=== PATIENT | female | born 1990 | race African-American/Black ===

== ENCOUNTER 2016-10-07 20:27 | Emergency (ER) | payer OTHER ==
[2016-10-07 20:38] VITALS: BP 139/76; PULSE 71; TEMP 98; BMI 36.3
[2016-10-07] MEDS ORDERED: ALBUTEROL SO4 2.5/IPRATROPIUM 0.5 INH SOL 3 ML VIAL.NEB. NEB ONE ×2 (21:36→21:37)
--- NOTE | 2016-10-07 21:37 | PDOC ---
History of Present Illness - General History Source: Patient Exam Limitations: No Limitations - History of Present Illness Initial Comments: 10/07/16 21:38 The patient is a 26 year old female, with a significant past medical history of asthma (denies any pump/inhalators) who presents to the emergency department with chest tightness and SOB for the past hour. The patient also notes having nasal congestion since this morning for which she plans to see her PCP on Wednesday. She notes having rhinorrhea describing her nasal discharge as clear. She denies any ear pain/congestion. She denies any sore throat. She denies any sick contacts. She denies any flu shot this year. She denies fever, chills, headache and dizziness. She denies nausea, vomit, diarrhea and constipation. She denies dysuria, frequency, urgency and hematuria. Allergies: NKA Past surgical history: denies Social history: Denies EtOH use, denies tobacco use, denies drug use. PCP: Dr. Carolynn Nj <Reagan Shell - Last Filed: 10/07/16 21:40> <Lucia Wu - Last Filed: 10/08/16 05:12> - General Chief Complaint: Asthma Stated Complaint: TIGHTNESS TO CHEST/SOB Time Seen by Provider: 10/07/16 20:31 Past History <Reagan Shell - Last Filed: 10/07/16 21:40> - Past Medical History Anemia: Yes (LOW IRON) Asthma: Yes Suicide Attempt (Hx): No - Surgical History Abdominal Surgery: Yes (hernia) - Immunization History Immunization Up to Date: Yes - Psycho/Social/Smoking Cessation Hx Anxiety: No Suicidal Ideation: No Smoking Status: Yes Smoking History: Never smoked Have you smoked in the past 12 months: No Number of Cigarettes Smoked Daily: 0 If you are a former smoker, when did you quit?: 1month Information on smoking cessation initiated: No 'Breaking Loose' booklet given: 03/11/15 Hx Alcohol Use: No Drug/Substance Use Hx: No Substance Use Type: None <Lucia Wu - Last Filed: 10/08/16 05:12> - Past Medical History Allergies/Adverse Reactions: Allergies Allergy/AdvReac Type Severity Reaction Status Date / Time No Known Allergies Allergy Verified 09/12/16 02:01 Home Medications: Ambulatory Orders Albuterol Sulfate Inhaler - [Ventolin HFA Inhaler -] 1 puff IH Q6H PRN #1 inhaler 10/07/16 Fluticasone Prop 0.05% Nasal [Flonase -] 1 - 2 spray NS BID #1 spray.pump Review of Systems - Review of Systems All Other Systems: Reviewed and Negative <Reagan Shell - Last Filed: 10/07/16 21:40> *Physical Exam - Vital Signs Last Vital Signs Temp Pulse Resp BP Pulse Ox 98 F 71 15 139/76 100 10/07/16 20:30 10/07/16 20:30 10/07/16 20:30 10/07/16 20:30 10/07/16 20:30 - Physical Exam Comments: 10/07/16 21:38 GENERAL: The patient is awake, alert, and fully oriented, in no acute distress. HEAD: Normal with no signs of trauma. EYES: Pupils equal, round and reactive to light, extraocular movements intact, sclera anicteric, conjunctiva clear with no pallor. ENT: Ears normal, Clear secretions bilateral nares., oropharynx clear without exudates. Moist mucous membranes. NECK: Normal range of motion, supple without lymphadenopathy, JVD, or masses. LUNGS: Decreased breath sounds. No wheeze/crackles. HEART: Regular rate and rhythm, normal S1 and S2 without murmur or rub. ABDOMEN: Soft/nontender/nondistended. BS wnl. No guarding or rebound. No palpable masses. No hepatosplenomegaly. EXTREMITIES: Normal range of motion, no edema. No clubbing or cyanosis. No cords , erythema, or tenderness. NEUROLOGICAL: Cranial nerves II through XII grossly intact. Normal speech, normal gait. PSYCH: Normal mood, normal affect. SKIN: Warm, Dry, normal turgor, no rashes or lesions noted. <Reagan Shell - Last Filed: 10/07/16 21:40> - Vital Signs Last Vital Signs Temp Pulse Resp BP Pulse Ox 98 F 71 15 139/76 100 10/07/16 20:30 10/07/16 20:30 10/07/16 20:30 10/07/16 20:30 10/07/16 20:30 <Lucia Wu - Last Filed: 10/08/16 05:12> Progress Note - Progress Note Progress Note: Documentation has been prepared under my direction and personally reviewed by me in its entirety. I attest that this documented accurately reflects all work, treatment, procedures and medical decision making performed by me. <Lucia Wu - Last Filed: 10/08/16 05:12> Medical Decision Making - Medical Decision Making As noted above, this 26-year-old woman with a history of mild asthma presents with upper respiratory symptoms along with sensation of "chest tightness" with breathing. She has not had actual wheezing. Exam shows evidence of rhinorrhea and decreased rest sounds bilaterally but no wheezing. Because patient is probably experiencing mild bronchospasm, DuoNeb treatment given. Patient has significant relief after the nebulizer treatment. Repeat lung exam shows much better air exchange. Patient will be discharged with prescription for albuterol inhaler, 2 puffs every 6 hours as needed for wheezing sent to her pharmacy. Also, prescription for Flonase 1 spray in each nostril twice a day will be sent to pharmacy. The patient has follow-up scheduled with her PMD on October 12. She should return to ER if she has worsening respiratory symptoms or high fever <Lucia Wu - Last Filed: 10/08/16 05:12> *DC/Admit/Observation/Transfer - Attestations Scribe Attestion: 10/07/16 21:38 Documentation prepared by Reagan Shell, acting as bacteriologist medical for Lucia Wu MD. <Regaan Shell - Last Filed: 10/07/16 21:40> <Lucia Wu - Last Filed: 10/08/16 05:12> Diagnosis at time of Disposition: Upper respiratory infection Qualifiers: URI type: unspecified viral URI Qualified Code(s): J06.9 - Acute upper respiratory infection, unspecified - Discharge Dispostion Disposition: HOME Condition at time of disposition: Stable - Prescriptions Prescriptions: Fluticasone Prop 0.05% Nasal [Flonase -] 1 - 2 spray NS BID #1 spray.pump Albuterol Sulfate Inhaler - [Ventolin HFA Inhaler -] 1 puff IH Q6H PRN #1 inhaler PRN Reason: Wheezing - Referrals Referrals: Carolynn Stearns MD [Primary Care Provider] - - Patient Instructions Printed Discharge Instructions: DI for Viral Upper Respiratory Infection -- Adult Additional Instructions: Rest; drink plenty of fluids Flonase 1 spray per nostril twice a day Albuterol inhaler: 1 puff every 6 hours as needed Follow-up with Dr. Stearns on October 12 as scheduled Return here if you have shortness of breath/wheezing or high fever
== END 2016-10-07 22:21 | disposition home or self-care (01) ==
LOC: FER 20:27
PROC: 3E0F7GC Introduction of Other Therapeutic Substance into Respiratory Tract, Via Natural or Artificial Opening (ICD-10-PCS; principal; 2016-10-07)
DX: J06.9 Acute upper respiratory infection, unspecified (principal); J45.909 Unspecified asthma, uncomplicated; D64.9 Anemia, unspecified
CPT/HCPCS: 94640; 99282-25

== ENCOUNTER 2017-01-18 08:30 | Emergency (ER) | payer OTHER ==
--- NOTE | 2017-01-18 08:37 | PDOC ---
History of Present Illness - General Chief Complaint: Shortness of Breath Stated Complaint: TIGHTNESS IN CHEST Time Seen by Provider: 01/18/17 08:37 History Source: Patient, Old Records Exam Limitations: No Limitations - History of Present Illness Initial Comments: 01/18/17 08:48 This is a 26-year-old female with history of asthma, anemia, who presents to the emergency Department with complaints of 2 day history of dyspnea on exertion. She took 2 puffs of her albuterol inhaler without significant relief. She denies leg swelling, calf pain, long travel history, cough, fever, chills. She does say that she has some tightness in her chest that is worsened when she takes in a deep breath. She has no history of blood clots, clotting disorders or pulmonary embolism. In review of her previous emergency department visits it appears that she's had multiple visits with this complaint and that his been documented that she has not had any audible wheezes on prior examinations. Past History - Past Medical History Allergies/Adverse Reactions: Allergies Allergy/AdvReac Type Severity Reaction Status Date / Time No Known Allergies Allergy Verified 09/12/16 02:01 Home Medications: Ambulatory Orders Albuterol Sulfate Inhaler - [Ventolin HFA Inhaler -] 1 puff IH Q6H PRN #1 inhaler 10/07/16 Anemia: Yes (LOW IRON) Asthma: Yes Suicide Attempt (Hx): No - Surgical History Abdominal Surgery: Yes (hernia) - Immunization History Immunization Up to Date: Yes - Psycho/Social/Smoking Cessation Hx Anxiety: No Suicidal Ideation: No Smoking Status: Yes Smoking History: Never smoked Have you smoked in the past 12 months: No Number of Cigarettes Smoked Daily: 0 If you are a former smoker, when did you quit?: 1month 'Breaking Loose' booklet given: 03/11/15 Hx Alcohol Use: No Drug/Substance Use Hx: No Substance Use Type: None Review of Systems - Review of Systems Able to Perform ROS?: Yes Is the patient limited [place] Islander proficient: No Constitutional: No: Symptoms Reported, See HPI, Chills, Diaphoresis, Fever, Loss of Appetite, Malaise, Night Sweats, Weakness, Weight Stable, Unintentional Wgt. Loss, Unexplained wgt Loss, Other HEENTM: No: Symptoms Reported Respiratory: Yes: See HPI. No: Cough Cardiac (ROS): Yes: See HPI ABD/GI: No: Symptoms Reported, See HPI, Abdominal Distended, Abd. Pain w/ defecation, Blood Streaked Bowels, Constipated, Diarrhea, Difficulty Swallowing , Nausea, Poor Appetite, Poor Fluid Intake, Rectal Bleeding, Vomiting, Indigestion, Abdominal cramping, Tarry Stools, Other : No: Symptoms Reported Musculoskeletal: No: Symptoms Reported Integumentary: No: Symptoms Reported Neurological: No: Symptoms reported *Physical Exam - Physical Exam Comments: GENERAL: Well developed, well nourished. Awake and alert. No acute distress. HEENT: Normocephalic, atraumatic. PERRLA, EOMI. No conjunctival pallor. NECK: Supple. Full ROM. No JVD. No lymphadenopathy. CARDIOVASCULAR: Regular rate and rhythm. No murmurs, rubs, or gallops. Distal pulses are 2+ and symmetric. PULMONARY: No evidence of respiratory distress. Lungs clear to auscultation bilaterally. No wheezing, rales or rhonchi. ABDOMINAL: Soft. Non-tender. Non-distended. No rebound or guarding. No organomegaly. Normoactive bowel sounds. MUSCULOSKELETAL Normal range of motion at all joints. No bony deformities or tenderness. No CVA tenderness. EXTREMITIES: No cyanosis. No clubbing. No edema. No calf tenderness. SKIN: Warm and dry. Normal capillary refill. No rashes. No jaundice. NEUROLOGICAL: Alert, awake, appropriate. Cranial nerves 2-12 intact. Grossly non-focal exam. PSYCHIATRIC: Cooperative. Good eye contact. Appropriate mood and affect. ED Treatment Course - LABORATORY CBC & Chemistry Diagram: 01/18/17 09:00 01/18/17 09:00 Medical Decision Making - Medical Decision Making 01/18/17 08:50 26-year-old female with history of anemia and asthma who presents to the emergency Department with complaints of 2 day history of dyspnea on exertion with no wheezing on physical exam; the patient is not hypoxic nor is she tachycardic. Differential diagnosis includes but is not limited to: Bronchospasm , reactive airway disease, ALLERGIES, CHF, ACS. Pulmonary embolism/DVT is unlikely given her Perc score for of 0. Plan: 1. EKG 2. Labs 3. Chest x-ray 4. Observe and reevaluate 01/18/17 11:23 Addendum: All labs were reviewed and are noted in the EMR. troponin as well as BNP are negative. Will discharge home. I have instructed the patient to follow-up with her PCP within 1-3 days and to return to the ED if her symptoms persist, worsen or new symptoms arise. *DC/Admit/Observation/Transfer Diagnosis at time of Disposition: Chest pain, Shortness of breath - Discharge Dispostion Disposition: HOME Condition at time of disposition: Stable Admit: No - Patient Instructions Printed Discharge Instructions: DI for Shortness of Breath Additional Instructions: Follow up with your primary care physician within 1-3 days. Please return to the ED if your symptoms persist, worsen or new symptoms arise.
[2017-01-18 09:01] VITALS: TEMP 98.6; BMI 34.1
[2017-01-18 09:09] LABS: PH,URINE 5.5 (4.5-8); URINE APPEARANCE Cloudy; URINE BILIRUBIN 1+ (NEGATIVE); URINE GLUCOSE (UA) Negative (NEGATIVE); URINE KETONE Trace (NEGATIVE); URINE LEUK ESTERASE Negative (NEGATIVE); URINE NITRITE Negative (NEGATIVE); URINE UROBILINOGEN 1.0 E.U/dl (0.2-1.0)
[2017-01-18 09:14] LABS: URINE BLOOD 3+ (NEGATIVE); URINE COLOR YELLOW; URINE PROTEIN 2+ (NEGATIVE)
[2017-01-18 09:15] LABS: BASOPHIL 1.2 % (0-2.0); MCH 23.5 pg (25.7-33.7)
[2017-01-18 09:22] LABS: URINE RBC >100 /hpf (0-3)
[2017-01-18 09:25] LABS: CALCIUM 9.4 mg/dl (8.4-10.2); COCKROFT - GAULT 175.6355; CREATININE 0.7 mg/dl (0.6-1.3)
[2017-01-18 09:28] LABS: CPK(DFH) 110 IU/L (26-140)
[2017-01-18 09:29] VITALS: BP 121/71; PULSE 79
[2017-01-18 09:33] LABS: MEAN CELL VOLUME 73.6 fl (80-96); MEAN PLT VOLUME 11.1 fl (7.5-11.1); NEUTROPHILS 63.7 % (42.8-82.8); PLATELET COUNT 212 K/MM3 (134-434); RDW 14.8 % (11.6-15.6); WHITE BLOOD COUNT 5.2 K/mm3 (4.0-10.8)
[2017-01-18 09:36] LABS: TROPONIN I (DFP) < 0.03 ng/ml (0.03-0.50)
[2017-01-18 12:41] LABS: HYPOCHROMIA 1+; MICROCYTOSIS 1+; PLATELET COMMENT2 FEW GIANT PLTS; PLATELET ESTIMATE ADEQUATE (NORMAL)
[2017-01-18 12:42] LABS: OVALOCYTES 1+
--- NOTE | 2017-01-19 13:24 | EKG ---
Test Reason : Blood Pressure : / mmHG Vent. Rate : 073 BPM Atrial Rate : 073 BPM P-R Int : 182 ms QRS Dur : 084 ms QT Int : 382 ms P-R-T Axes : 050 045 035 degrees QTc Int : 420 ms NORMAL SINUS RHYTHM NORMAL ECG WHEN COMPARED WITH ECG OF 21-DEC-2015 22:10, NO SIGNIFICANT CHANGE WAS FOUND Confirmed by JOANNA DEXTER MD ([id number]) on 01/19/2017 1:24:46 PM Referred By: HARDY HICKS Confirmed By:JOANNA DEXTER MD
== END 2017-01-18 12:23 | disposition home or self-care (01) ==
LOC: FER 08:30
DX: R07.9 Chest pain, unspecified (principal); R06.02 Shortness of breath; J45.909 Unspecified asthma, uncomplicated; D64.9 Anemia, unspecified; Z87.891 Personal history of nicotine dependence
CPT/HCPCS: 36415; 71020-TC; 80048; 81003; 81015; 82550; 83880; 84484; 84703; 85025; 93005; 99283-25

== ENCOUNTER 2017-06-21 00:02 | Emergency (ER) | payer OTHER ==
--- NOTE | 2017-06-21 00:33 | PDOC ---
History of Present Illness - General Stated Complaint: L SIDED ARM PAIN Time Seen by Provider: 06/21/17 00:32 History Source: Patient Exam Limitations: No Limitations - History of Present Illness Initial Comments: 06/21/17 01:01 Patient is a 26 yo obese female with a history of asthma and anemia presenting with lightheadedness for one day. Patient states for the last 3 days she has had left arm pain on waking that quickly resolves. Today, while working at her computer, she started feeling lightheaded with an associated "popping" in her ears which has not resolved. It is not effected with exertion or position. Nothing makes it better or worse. Patient states she had a similar incident 3 months ago that she treated with Advil and Alieve. Denies any fever, chills, recent sickness, vision changes, CP, palpitations, SOB, long trips, immobilizations, OCP use. Also endorses periodic b/l pressure in her temples and a feeling of blood pulsating on top of her head. Sgx history significant only for bilateral tubal ligation. Patient smokes 1 pk/wk, denies any EtOH or drug use PCP: Melissa Crowley Past History - Past Medical History Allergies/Adverse Reactions: Allergies Allergy/AdvReac Type Severity Reaction Status Date / Time No Known Allergies Allergy Verified 06/21/17 00:45 Home Medications: Ambulatory Orders NK [No Known Home Medication] 06/21/17 Anemia: Yes (LOW IRON) Asthma: Yes Suicide Attempt (Hx): No - Surgical History Abdominal Surgery: Yes (hernia) - Immunization History Immunization Up to Date: Yes - Suicide/Smoking/Psychosocial Hx Anxiety: No Suicidal Ideation: No Smoking Status: Yes Smoking History: Never smoked Have you smoked in the past 12 months: No Number of Cigarettes Smoked Daily: 0 If you are a former smoker, when did you quit?: 1month 'Breaking Loose' booklet given: 03/11/15 Hx Alcohol Use: No Drug/Substance Use Hx: No Substance Use Type: None Review of Systems - Review of Systems Able to Perform ROS?: Yes Comments:: 06/21/17 01:18 Denies any fever, chills, recent sickness Denies vision changes; endorses "popping" in her ears Denies sore throat, cough, SOB Denies CP, palpitations; Endorses lightheadedness Denies abdominal pain, nausea, vomiting, constipation, diarrhea Denies dysures, increased urination frequency Denies FOURNIER, weakness Is the patient limited Mexican proficient: No *Physical Exam - Vital Signs 06/21/17 01:31 GENERAL: AAOx3, obese, nourished and generally well appearing, NAD HEAD: NCAT EYES: PERRLA, EOMI, sclera anicteric, conjunctiva clear ENT: hearing grossly normal, nares patent, no nasal discharge, no congestion, MMM NECK: supple, normal ROM, no LAD, no JVD, no masses RESP: speaking in full sentences, symmetrical chest expansion, no respiratory distress, lungs CTAB HEART: RRR, normal S1-S2, no MRG ABDOMEN: protuberant, soft, NTND, no guarding, no rebound. EXTREMITIES: Moving all extremities, normal ROM, strength 5/5 UE/LE, sensation intact. NEUROLOGICAL: CN II-XII grossly intact, normal speech, normal gait, no focal neurological deficits SKIN: warm, dry, normal turgor, no rashes or lesions noted. ED Treatment Course - LABORATORY CBC & Chemistry Diagram: 06/21/17 01:37 06/21/17 01:37 Medical Decision Making - Medical Decision Making 06/21/17 01:08 26 yo female with pre-syncope for one day not associated with cp, palpitations, sob or any findings on physical exam. Ddx includes but is not limited to arrhythmia, ectopic , PE, ACS. infection, sinusitis Plan: EKG Blood and chemistry HCG monitor and reevaluate 06/21/17 01:23 PERC 0 (Age: 26, HR: 77, O2: 100, no leg swelling, no hemoptysis); R/O PE ACS unlikely given age, no chest pain Vitals wnl, not consistent with systemic infection 06/21/17 01:46 EKG: NSR, 70 BPM, no s-t elevation, normal intervals, normal EKG 06/21/17 02:04 CBC WBC 7.0 K/mm3 (4.0-10.0) 06/21/17 01:37 RBC 4.61 M/mm3 (3.60-5.2) 06/21/17 01:37 Hgb 10.6 GM/dL (10.7-15.3) L 06/21/17 01:37 Hct 33.1 % (32.4-45.2) 06/21/17 01:37 MCV 71.7 fl (80-96) L 06/21/17 01:37 MCH 23.1 pg (25.7-33.7) L 06/21/17 01:37 MCHC 32.2 g/dl (32.0-36.0) 06/21/17 01:37 RDW 17.1 % (11.6-15.6) H 06/21/17 01:37 Neutrophils % 51.1 % (42.8-82.8) 06/21/17 01:37 Lymphocytes % 31.4 % (8-40) 06/21/17 01:37 Monocytes % 12.3 % (3.8-10.2) H 06/21/17 01:37 Eosinophils % 4.1 % (0-4.5) 06/21/17 01:37 Basophils % 1.1 % (0-2.0) 06/21/17 01:37 Mild anemia, non-concerning in menstruating female 06/21/17 02:56 CMP Sodium 139 mmol/L (136-145) 06/21/17 01:37 Potassium 3.8 mmol/L (3.5-5.1) 06/21/17 01:37 Chloride 103 mmol/L (98-107) 06/21/17 01:37 Carbon Dioxide 29 mmol/L (21-32) 06/21/17 01:37 Anion Gap 7 (8-16) L 06/21/17 01:37 BUN 8 mg/dL (7-18) 06/21/17 01:37 Creatinine 0.7 mg/dL (0.55-1.02) 06/21/17 01:37 Creat Clearance w eGFR > 60 (>60) 06/21/17 01:37 Random Glucose 121 mg/dL (74-106) H 06/21/17 01:37 Calcium 9.1 mg/dL (8.5-10.1) 06/21/17 01:37 Total Bilirubin 0.3 mg/dL (0.2-1.0) 06/21/17 01:37 AST 8 U/L (15-37) L 06/21/17 01:37 ALT 15 U/L (12-78) 06/21/17 01:37 Alkaline Phosphatase 56 U/L (45-117) 06/21/17 01:37 Total Protein 7.5 g/dl (6.4-8.2) 06/21/17 01:37 Albumin 3.7 g/dl (3.4-5.0) 06/21/17 01:37 Grossly wnl, Non concerning 26 yo f c/o lightheadedness with no focal deficits, non concerning labs and ekg , okay to go home with PCP followup. *DC/Admit/Observation/Transfer Diagnosis at time of Disposition: Light-headed feeling - Discharge Dispostion Disposition: HOME Condition at time of disposition: Stable Admit: No - Referrals Referrals: Melina Crowley MD [Primary Care Provider] - - Patient Instructions Printed Discharge Instructions: DI for Dizziness-Nonvertigo Additional Instructions: Your EKG and labs did not show any concerning abnormalities They do show that your are slightly anemic and should discuss this with Dr. Crowley. You need to follow up with Dr. Crowley in the next week. Please return to the emergency department if your symptoms get worse, you lose consciousness or develop any new or concerning symptoms.
--- NOTE | 2017-06-21 00:42 | PDOC ---
Attending Attestation - Resident Resident Name: Corwin Barraza - HPI HPI: 06/24/17 07:20 Pt presented to the ED complaining of lightheadness. Denies fever, nausea, vomiting chest pain or shortness of breath. - Physicial Exam PE: 06/24/17 07:21 Agree with resident exam. Patient is in no acute distress. - Medical Decision Making 06/24/17 07:22 Pt presents to the ED complaining of lightheadness. EKG checked to evaluate for arrythmia, and is negative. Labs checked to evaluate for anemia, electrolyte disturbance or ectopic , and are negative. Will discharge home.
[2017-06-21 00:46] VITALS: BP 143/91; PULSE 77; TEMP 97.5; BMI 37.5
[2017-06-21 01:42] LABS: BASOPHIL 1.1 % (0-2.0); EOSINOPHIL 4.1 % (0-4.5); MCH 23.1 pg (25.7-33.7); MCHC 32.2 g/dl (32.0-36.0); MEAN CELL VOLUME 71.7 fl (80-96); NEUTROPHILS 51.1 % (42.8-82.8); RDW 17.1 % (11.6-15.6)
[2017-06-21 02:15] LABS: MEAN PLT VOLUME 9.9 fl (7.5-11.1); PLATELET COMMENT2 NO CLUMPING NOTED; PLATELET COMMENT3 NO CLOTTING DETECTED; PLATELET COUNT 203 K/MM3 (134-434); PLATELET ESTIMATE ADEQUATE (NORMAL)
[2017-06-21 02:19] LABS: ALBUMIN 3.7 g/dl (3.4-5.0); ALK PHOS 56 U/L (45-117); ANION GAP 7 (8-16); BILIRUBIN,TOTAL 0.3 mg/dL (0.2-1.0); CALCIUM 9.1 mg/dL (8.5-10.1); CO2 29 mmol/L (21-32); CREATININE 0.7 mg/dL (0.55-1.02); GLUCOSE,RANDOM 121 mg/dL (74-106); SGOT/AST 8 U/L (15-37); SGPT/ALT 15 U/L (12-78); TOT PROT 7.5 g/dl (6.4-8.2)
--- NOTE | 2017-06-21 13:54 | EKG ---
Test Reason : Blood Pressure : / mmHG Vent. Rate : 065 BPM Atrial Rate : 065 BPM P-R Int : 202 ms QRS Dur : 088 ms QT Int : 410 ms P-R-T Axes : 054 050 044 degrees QTc Int : 426 ms NORMAL SINUS RHYTHM NORMAL ECG WHEN COMPARED WITH ECG OF 18-JAN-2017 08:49, NO SIGNIFICANT CHANGE WAS FOUND Confirmed by KAILEE MORA MD ([id number]) on 06/21/2017 1:54:28 PM Referred By: Confirmed By:KAILEE MORA MD
== END 2017-06-21 03:18 | disposition home or self-care (01) ==
LOC: JER 00:02
DX: R42 Dizziness and giddiness (principal); J45.909 Unspecified asthma, uncomplicated; D50.8 Other iron deficiency anemias
CPT/HCPCS: 36415; 80053; 84703; 85025; 93005; 93010; 99281-25

== ENCOUNTER 2018-01-30 21:47 | Emergency (ER) | payer OTHER | END 2018-01-31 00:14 | disposition home or self-care (01) | LOC: JER 21:47 | CPT/HCPCS: 81003; 81015; 84703; 99282-25 ==

== ENCOUNTER 2018-04-29 00:33 | Emergency (ER) | payer OTHER ==
[2018-04-29 00:42] VITALS: BP 135/87; PULSE 64; TEMP 98.4; BMI 36.1
[2018-04-29] MEDS ORDERED: IBUPROFEN 400 MG TABLET (FP) PO ONE (00:54)
--- NOTE | 2018-04-29 01:09 | PDOC ---
History of Present Illness - General Chief Complaint: Sore Throat Stated Complaint: SORE THROAT Time Seen by Provider: 04/29/18 00:50 History Source: Patient - History of Present Illness Initial Comments: 04/29/18 02:08 27-year-old female with sore throat for 2 days. denies sick contact. No hot potato voice and drooling noted.Denies fevers/chills, nausea, vomiting Past History - Past Medical History Allergies/Adverse Reactions: Allergies Allergy/AdvReac Type Severity Reaction Status Date / Time No Known Allergies Allergy Verified 04/29/18 00:37 Home Medications: Ambulatory Orders Amoxicillin - [Amoxicillin 500mg Capsule -] 500 mg PO BID #20 capsule 04/29/18 Anemia: Yes (LOW IRON) Asthma: Yes COPD: No - Surgical History Abdominal Surgery: Yes (hernia) - Immunization History Immunization Up to Date: Yes - Suicide/Smoking/Psychosocial Hx Smoking Status: Yes Smoking History: Current every day smoker Have you smoked in the past 12 months: No Number of Cigarettes Smoked Daily: 4 If you are a former smoker, when did you quit?: 1month Information on smoking cessation initiated: Yes 'Breaking Loose' booklet given: 03/11/15 Hx Alcohol Use: No Drug/Substance Use Hx: No Substance Use Type: None *Physical Exam - Vital Signs Last Vital Signs Temp Pulse Resp BP Pulse Ox 98.4 F 64 18 135/87 99 04/29/18 00:35 04/29/18 00:35 04/29/18 00:35 04/29/18 00:35 04/29/18 00:35 - Physical Exam General Appearance: Yes: Appropriately Dressed HEENT: positive: Tonsillar Erythema. negative: EOMI, NIKITA, Normal ENT Inspection, Normal Voice, Symmetrical, TMs Normal, Pharynx Normal, Pale Conjunctivae, Photophobia, Scleral Icterus (R), Scleral Icterus (L), Muffled/ Hoarse voice, Pharyngeal Erythema, Tonsillar Exudate, Nasal Congestion, Rhinorrhea, Sinus Tenderness, Orbits, Hearing Decreased, Hearing Grossly Normal , TM Bulging, TM Dull, TM Erythema, Lesions, Brasher, Excessive drooling, Thrush, Other Medical Decision Making - Medical Decision Making 04/29/18 02:11 A: pharyngitis P: rapid strep negative throat cx pending will empirically start amoxicillin *DC/Admit/Observation/Transfer Diagnosis at time of Disposition: Pharyngitis, acute Qualifiers: Pharyngitis/tonsillitis etiology: unspecified etiology Qualified Code(s): J02.9 - Acute pharyngitis, unspecified - Discharge Dispostion Disposition: HOME - Prescriptions Prescriptions: Amoxicillin - [Amoxicillin 500mg Capsule -] 500 mg PO BID #20 capsule - Referrals Referrals: Dominic Reyna MD [Primary Care Provider] - - Patient Instructions Printed Discharge Instructions: Sore Throat Additional Instructions: Drink plenty of fluids. Gargle with warm salty water Take ibuprofen every 6 hours as needed for pain and fever Follow-up with your doctor as soon as possible Take amoxicillin as prescribed - Post Discharge Activity
== END 2018-04-29 02:31 | disposition home or self-care (01) ==
LOC: JER 00:33
DX: J02.9 Acute pharyngitis, unspecified (principal); F17.210 Nicotine dependence, cigarettes, uncomplicated; J45.909 Unspecified asthma, uncomplicated
CPT/HCPCS: 87070; 87430; 99282-25

== ENCOUNTER 2019-05-14 22:22 | Emergency (ER) | payer OTHER | END 2019-05-15 00:27 | disposition home or self-care (01) | LOC: FER 05-15 00:27 ==

== ENCOUNTER 2019-08-13 19:51 | Emergency (ER) | payer OTHER ==
[2019-08-13 20:10] VITALS: BP 119/65; PULSE 84; TEMP 97.9; BMI 37.3
--- NOTE | 2019-08-13 20:25 | PDOC ---
History of Present Illness - General Chief Complaint: Ear Problem Stated Complaint: EARACHE Time Seen by Provider: 08/13/19 20:12 - History of Present Illness Initial Comments: 08/13/19 20:18 CHIEF COMPLAINT: ear pain HISTORY OF PRESENT ILLNESS: 29 yo F presents to [facility] with pain to ear. Patient reports she noticed a "bump in my R ear a week ago but I didn't pay much attention to it because I have a history of acne." Patient came to ER today because she still had the bump to her ear and the pain felt a bit worse. Patient denies any fever, chills, nausea, or vomiting. No recent travel or sick contacts. PAST MEDICAL HISTORY: Denies past medical history FAMILY HISTORY: Denies SOCIAL HISTORY: Denies tobacco, alcohol, illicit drug use. SURGICAL HISTORY: Denies ALLERGIES: No known drug allergies REVIEW OF SYSTEMS General/Constitutional: Denies fever or chills. Denies weakness, weight change. HEENT: R ear pain. Denies change in vision. Denies sore throat. Cardiovascular: Denies chest pain or shortness of breath. Respiratory: Denies cough, wheezing, or hemoptysis. Gastrointestinal: Denies nausea, vomiting, diarrhea or constipation. Denies rectal bleeding. Genitourinary: Denies dysuria, frequency, or change in urination. Musculoskeletal: Denies joint or muscle swelling or pain. Denies neck or back pain. Skin and breasts: Denies rash or easy bruising. Neurologic: Denies headache, vertigo, loss of consciousness, or loss of sensation. Psychiatric: Denies depression or anxiety. Endocrine: Denies increased thirst. Denies abnormal weight change. Hematologic/Lymphatic: Denies anemia, easy bleeding, or history of blood clots. Allergic/Immunologic: Denies hives or skin allergy. Denies latex allergy. PHYSICAL EXAM General Appearance: Well-appearing, appropriately dressed. No apparent distress. HEENT: Small tender nodule to external auditory canal. TM intact, auditory canal without erythema or dishcarge. EOMI, PERRLA, normal voice, TMs normal, pharynx normal. No conjunctival pallor. No photophobia, scleral icterus. Neck: Supple. Trachea midline. No tenderness, rigidity, carotid bruit, stridor , lymphadenopathy, or thyromegaly. Respiratory/Chest: Lungs CTAB. No shortness of breath, chest tenderness, respiratory distress, accessory muscle use. No crackles, rales, rhonchi, stridor , wheezing, dullness Cardiovascular: RRR. S1, S2. No JVD, murmur, bradycardia, tachycardia. Vascular Pulses: Dorsalis-Pedis (R): 2+, Dorsalis-Pedis (L): 2+ Gastrointestinal/Abdominal: Normal bowel sounds. Abdomen soft, non-distended. No tenderness or rebound tenderness. No organomegaly, pulsatile mass, guarding , hernia, hepatomegaly, splenomegaly. Lymphatic: No adenopathy, tenderness. Musculoskeletal/Extremities: Normal inspection. FROM of all extremities, normal capillary refill. Pelvis Stable. No CVA tenderness. No tenderness to extremities, pedal edema, swelling, erythema or deformity. Integumentary: Appropriate color, dry, warm. No cyanosis, erythema, jaundice or rash Neurologic: territory sales consultant II-XII intact. Fully oriented, alert. Appropriate mood/affect. Motor strength 5/5. No appreciable EOM palsy, facial droop or sensory deficit. Past History - Past Medical History Allergies/Adverse Reactions: Allergies Allergy/AdvReac Type Severity Reaction Status Date / Time No Known Allergies Allergy Verified 05/14/19 22:23 Home Medications: Ambulatory Orders Docusate Sodium [Colace] 100 mg PO DAILY 05/14/19 Iron 18 mg PO DAILY 05/14/19 Sulfamethoxazole/Trimethoprim [Bactrim Ds -] 1 tab PO DAILY #10 tablet 08/13/19 Anemia: Yes (LOW IRON) Asthma: Yes COPD: No - Surgical History Abdominal Surgery: Yes (hernia) - Immunization History Immunization Up to Date: Yes - Psycho Social/Smoking Cessation Hx Smoking Status: Yes Smoking History: Never smoked Have you smoked in the past 12 months: No Number of Cigarettes Smoked Daily: 0 If you are a former smoker, when did you quit?: 1month 'Breaking Loose' booklet given: 03/11/15 Hx Alcohol Use: No Drug/Substance Use Hx: No Substance Use Type: None *Physical Exam - Vital Signs Last Vital Signs Temp Pulse Resp BP Pulse Ox 97.9 F 84 20 119/65 100 08/13/19 20:06 08/13/19 20:06 08/13/19 20:06 08/13/19 20:06 08/13/19 20:06 Medical Decision Making - Medical Decision Making 08/13/19 20:25 29 yo F [facility] with pain to ear. -bactrim Discharge - Discharge Information Problems reviewed: Yes Clinical Impression/Diagnosis: Acne cystica Condition: Stable Disposition: HOME - Admission No - Additional Discharge Information Prescriptions: Sulfamethoxazole/Trimethoprim [Bactrim Ds -] 1 tab PO DAILY #10 tablet - Follow up/Referral - Patient Discharge Instructions - Post Discharge Activity
== END 2019-08-13 20:30 | disposition home or self-care (01) ==
LOC: JERFT 19:51
DX: L70.0 Acne vulgaris (principal); J45.909 Unspecified asthma, uncomplicated; D50.9 Iron deficiency anemia, unspecified
CPT/HCPCS: 99281-25

== ENCOUNTER 2021-08-20 21:31 | Emergency (ER) | payer OTHER ==
[2021-08-20 21:37] VITALS: BP 131/89; PULSE 93; TEMP 98.6; BMI 32.9
[2021-08-20] MEDS ORDERED: SODIUM CHLORIDE 0.9% 500 ML INFUS.BAG IV ONE (22:59)
[2021-08-20] MEDS ORDERED: METOCLOPRAMIDE HCL INJECTION 10 MG/2 ML VIAL IVPUSH ONE (22:59)
[2021-08-20] MEDS ORDERED: KETOROLAC TROMETHAMINE 30 MG/1 ML VIAL IVPUSH ONE (22:59)
[2021-08-20] MEDS ORDERED: METOCLOPRAMIDE HCL INJECTION 10 MG/2 ML VIAL ONE (23:07)
[2021-08-20] MEDS ORDERED: KETOROLAC TROMETHAMINE 30 MG/1 ML VIAL ONE (23:07)
[2021-08-20 23:24] LABS: BASO % 1.2 % (0-2.0); EOS % 2.9 % (0-4.5); HEMATOCRIT 26.6 % (32.4-45.2); HEMOGLOBIN 8.1 GM/dL (10.7-15.3); LYMPH % 19.4 % (8-40); MCHC 30.5 g/dl (32.0-36.0); MEAN PLT VOLUME 10.3 fl (7.5-11.1); MONO % 7.4 % (3.8-10.2); NEUT % 69.1 % (42.8-82.8); PLATELET COUNT 292 10^3/uL (134-434); RBC 4.16 M/mm3 (3.60-5.2); RDW 19.5 % (11.6-15.6); WHITE BLOOD COUNT 6.9 K/mm3 (4.0-10.0)
[2021-08-20 23:29] LABS: MCH 19.6 pg (25.7-33.7)
[2021-08-20 23:39] LABS: ALBUMIN 3.4 g/dl (3.4-5.0); BLOOD UREA NITROGEN 5.4 mg/dL (7-18)
[2021-08-20 23:42] LABS: CREATININE 0.9 mg/dL (0.55-1.3)
[2021-08-20 23:44] LABS: BILIRUBIN,TOTAL 0.2 mg/dL (0.2-1); TOT PROT 7.6 g/dl (6.4-8.2)
[2021-08-21 00:53] LABS: ANISOCYTOSIS 3+; MACROCYTOSIS 0; OVALOCYTE 1+; PLATELET ESTIMATE NORMAL; TARGET CELLS 1+
== END 2021-08-21 01:40 | disposition home or self-care (01) ==
LOC: JER 21:31
PROC: 3E0333Z Introduction of Anti-inflammatory into Peripheral Vein, Percutaneous Approach (ICD-10-PCS; principal; 2021-08-20)
PROC: 3E033GC Introduction of Other Therapeutic Substance into Peripheral Vein, Percutaneous Approach (ICD-10-PCS; 2021-08-20)
PROC: 3E0337Z Introduction of Electrolytic and Water Balance Substance into Peripheral Vein, Percutaneous Approach (ICD-10-PCS; 2021-08-20)
DX: R51.9 Headache, unspecified (principal)
CPT/HCPCS: 36415; 80053; 84703; 85025; 99284-25

== ENCOUNTER 2021-11-17 08:33 | Emergency (ER) | payer OTHER ==
[2021-11-17 08:54] VITALS: BP 127/79; PULSE 83; TEMP 97.9; BMI 31.4
== END 2021-11-17 09:45 | disposition home or self-care (01) ==
LOC: JERFT 08:33
DX: K59.00 Constipation, unspecified (principal)
CPT/HCPCS: 99281-25

== ENCOUNTER 2022-05-12 04:10 | Day surgery (SDC) | payer OTHER ==
[2022-05-08 17:46] VITALS: BMI 31.6
[2022-05-12] MEDS ORDERED: IBUPROFEN 600 MG TABLET (FP) PO PRN (10:11)
[2022-05-12] MEDS ORDERED: oxyCODONE HCL 5 MG TABLET PO PRN (10:11)
[2022-05-12] MEDS ORDERED: ONDANSETRON 4 MG/2 ML VIAL IVPUSH PRN (10:11)
[2022-05-12] MEDS ORDERED: IBUPROFEN 800 MG/8 ML IJ IVPB PRN (10:11)
[2022-05-12] MEDS ORDERED: ELECTROLYTE-148 SOLN 1,000 ML IV SCH (10:15)
[2022-05-12] MEDS ORDERED: MIDAZOLAM HCL 2 MG/2 ML SINGLE DOSE VIAL ONE (13:04)
[2022-05-12] MEDS ORDERED: KETAMINE HCL 200 MG/20 ML VIAL ONE (13:05)
[2022-05-12] MEDS ORDERED: PROPOFOL 20 ML ONE (13:16)
[2022-05-12] MEDS ORDERED: SUCCINYLCHOLINE CHLORIDE 200 MG/10 ML SYRINGE ONE (13:19)
[2022-05-12] MEDS ORDERED: SILVER NITRATE 75% APPLIC STCK 1 PKT EACH TP ONE (13:52)
[2022-05-12 14:48] VITALS: RESP 18
[2022-05-12 16:09] VITALS: BP 129/70; PULSE 61; TEMP 98.2
== END 2022-05-12 16:24 | disposition home or self-care (01) ==
LOC: JASU-SURG 04:10
PROVIDERS: ATTEND Obstetrics & Gynecology
PROC: 0UDB7ZX Extraction of Endometrium, Via Natural or Artificial Opening, Diagnostic (ICD-10-PCS; 2022-05-12)
PROC: 0UB98ZX Excision of Uterus, Via Natural or Artificial Opening Endoscopic, Diagnostic (ICD-10-PCS; principal; 2022-05-12 12:00)
DX: N92.0 Excessive and frequent menstruation with regular cycle (principal); D50.9 Iron deficiency anemia, unspecified; N84.0 Polyp of corpus uteri
CPT/HCPCS: 76998-TC; 81025; 88305-TC; 94760

== ENCOUNTER 2023-05-31 23:50 | Emergency (ER) | payer BC, OTHER ==
[2023-05-31 23:56] VITALS: BP 128/79; PULSE 87; RESP 18; TEMP 98.9; BMI 21.6
[2023-06-01] MEDS ORDERED: SODIUM CHLORIDE 1,000 ML IV STA (00:42)
[2023-06-01] MEDS ORDERED: ACETAMINOPHEN 1000 MG/100 ML BAG IVPB ONE (00:42)
[2023-06-01 02:08] LABS: POTASSIUM 3.9 mmol/L (3.5-5.1)
[2023-06-01 02:09] LABS: INR 1.03 (0.83-1.09)
[2023-06-01] MEDS ORDERED: ACETAMINOPHEN INJECTION 100 ML IVPB ONE (02:10)
[2023-06-01 02:11] LABS: ACTIVATED PTT 32.1 SECONDS (25.2-36.5); ALBUMIN 3.6 g/dl (3.4-5.0); BLOOD UREA NITROGEN 9.1 mg/dL (7-18); CALCIUM 8.7 mg/dL (8.5-10.1)
[2023-06-01 02:14] LABS: CREATININE 0.8 mg/dL (0.55-1.3)
[2023-06-01 02:15] LABS: BILIRUBIN,TOTAL 0.2 mg/dL (0.2-1); TOT PROT 7.4 g/dl (6.4-8.2)
[2023-06-01 02:34] LABS: BASO % 1.2 % (0-2.0); EOS % 5.4 % (0-4.5); HEMOGLOBIN 10.9 GM/dL (10.7-15.3); MCH 24.4 pg (25.7-33.7); MCHC 32.1 g/dl (32.0-36.0); MEAN PLT VOLUME 9.8 fl (7.5-11.1); MONO % 10.3 % (3.8-10.2); NEUT % 57.1 % (42.8-82.8); PLATELET COUNT 188 10^3/uL (134-434); RBC 4.48 M/mm3 (3.60-5.2); RDW 15.2 % (11.6-15.6); WHITE BLOOD COUNT 7.4 K/mm3 (4.0-10.0)
== END 2023-06-01 03:53 | disposition home or self-care (01) ==
LOC: JER 23:50
PROC: 3E033NZ Introduction of Analgesics, Hypnotics, Sedatives into Peripheral Vein, Percutaneous Approach (ICD-10-PCS; principal; 2023-06-01)
PROC: 3E0337Z Introduction of Electrolytic and Water Balance Substance into Peripheral Vein, Percutaneous Approach (ICD-10-PCS; 2023-06-01)
DX: R51.9 Headache, unspecified (principal)
CPT/HCPCS: 36415; 80053; 84703; 85025; 85610; 85730; 86850; 86900; 86901; 99284-25

== ENCOUNTER 2023-07-22 16:49 | Emergency (ER) | payer BC, OTHER ==
[2023-07-22 16:55] VITALS: BP 128/73; PULSE 81; RESP 16; TEMP 98.5; BMI 29.9
[2023-07-22 17:57] LABS: BASO % 1.3 % (0-2.0); EOS % 4.2 % (0-4.5); HEMATOCRIT 32.6 % (32.4-45.2); HEMOGLOBIN 10.5 GM/dL (10.7-15.3); LYMPH % 19.7 % (8-40); MCH 23.3 pg (25.7-33.7); MCHC 32.2 g/dl (32.0-36.0); MEAN CELL VOLUME 72.3 fl (80-96); MEAN PLT VOLUME 9.7 fl (7.5-11.1); MONO % 8.8 % (3.8-10.2); PLATELET COUNT 199 10^3/uL (134-434); RDW 16.6 % (11.6-15.6); WHITE BLOOD COUNT 8.4 K/mm3 (4.0-10.0)
[2023-07-22 18:06] LABS: ADD RBC MORPHOLOGY YES
[2023-07-22 18:07] LABS: POTASSIUM 3.9 mmol/L (3.5-5.1)
[2023-07-22 18:08] LABS: CALCIUM 9.3 mg/dL (8.5-10.1)
[2023-07-22 18:09] LABS: ALBUMIN 3.6 g/dl (3.4-5.0); BLOOD UREA NITROGEN 6.4 mg/dL (7-18)
[2023-07-22 18:12] LABS: CREATININE 0.8 mg/dL (0.55-1.3)
[2023-07-22 18:14] LABS: BILIRUBIN,TOTAL 0.3 mg/dL (0.2-1); TOT PROT 7.5 g/dl (6.4-8.2)
[2023-07-22 19:29] LABS: ANISOCYTOSIS 1+; MACROCYTOSIS 1+; PLATELET ESTIMATE NORMAL
== END 2023-07-22 18:42 | disposition home or self-care (01) ==
LOC: JERFT 16:49
DX: R06.02 Shortness of breath (principal); M54.50 Low back pain, unspecified
CPT/HCPCS: 36415; 71046-TC-FY; 80053; 84703; 85025; 86850; 86900; 86901; 99284-25